=== PATIENT | female | born 1960 | race Two or more races ===

== ENCOUNTER 2025-04-07 01:35 | Emergency (ER) | payer SELFPAY ==
[2025-04-07 01:54] VITALS: BP 145/87; PULSE 84; PULSE 90; RESP 19; RESP 20; TEMP 36.9; O2SAT 100; O2SAT 98; BMI 25.7
--- NOTE | 2025-04-07 02:08 | XR_ITS ---
EXAMINATION: Cervical spine 3 views TECHNIQUE: AP lateral coned AP odontoid cervical spine 3 views Date and time: April 07, 2025, 0325 hours INDICATIONS: Neck pain today. FINDINGS: Straightening normal cervical lordosis. Advanced degenerative disc disease C5-C6, C6-C7 with posterior osteophyte formation The odontoid is intact No cervical fracture IMPRESSION: Advanced degenerative disc disease C5-C6, C6-C7
[2025-04-07 02:25] LABS: Collection Type, Urine Clean Catch
[2025-04-07 02:27] LABS: Basophils # (Auto) 0.1 Thou/mm3 (0.0-0.2); Basophils % (Auto) 1 % (0-2.5); Eosinophils # (Auto) 0.2 Thou/mm3 (0.0-0.5); Eosinophils % (Auto) 2 % (0-10); Hematocrit 41.9 % (36.0-46.0); Hemoglobin 14.6 g/dL (12.0-16.0); Immature Granulocytes Auto 0.14 Thou/mm3 (0.00-0.00); Lymphocytes # (Auto) 2.1 Thou/mm3 (1.0-4.8); Lymphocytes % (Auto) 29 % (10-50); Mean Corpuscular HGB Conc 34.8 g/dl (31.0-37.0); Mean Corpuscular Hemoglobin 31.8 pg (25.0-35.0); Mean Corpuscular Volume 91 fL (80-100); Monocytes # (Auto) 0.6 Thou/mm3 (0.0-0.8); Monocytes % (Auto) 8 % (0-12); Neutrophils # (Auto) 4.3 Thou/mm3 (1.8-7.7); Neutrophils % (Auto) 58 % (37-80); Nucleated Red Blood Cell # 0.00 Thou/mm3 (0.00-0.00); Nucleated Red Blood Cell % 0 /100 WBC (0); Platelet Count 142 Thou/mm3 (140-440); RDW Standard Deviation 47.1 fL (36.4-46.3); Red Blood Count 4.59 Miln/mm3 (4.00-5.20); White Blood Count 7.5 Thou/mm3 (3.6-11.0)
[2025-04-07] MEDS: SODIUM CHLORIDE 0.9% 1000 ML 1,000 ML 999 ML IV (02:27)
[2025-04-07] MEDS: LIDOCAINE 5% 1 PATCH 2 PATCH TOP (02:27)
[2025-04-07] MEDS: ONDANSETRON INJ 2 MG/ML INJ 2 ML 4 MG IVP (02:28)
[2025-04-07] MEDS: KETOROLAC INJ 30 MG/ML VIAL IVP (02:29)
[2025-04-07 02:35] LABS: Amorphous Crystals,Urine Present (Absent); Bacteria,Urine 1+; Bilirubin,Urine 1+ (Negative); Blood,Urine Negative (Negative); Clarity,Urine Turbid (Clear/Hazy); Color,Urine Drk-Yellow (Lt Yel-Yel); Culture Indicated,Urine Contaminated; Glucose, Urine Negative (Negative); Hyaline Casts,Urine 1 /hpf (0-1); Ketones,Urine Trace (Negative); Leukocyte Esterase,Urine Positive (Negative); Nitrite,Urine Negative (Negative); PH,Urine 5.5 (5.0-7.0); Protein,Urine 1+ (Neg - Trace); RBC,Urine 22 /hpf (0-3); Specific Gravity,Urine 1.035 (1.001-1.035); Squamous Epithelial Cell,Urine 31 /hpf (0-5); Urobilinogen,Urine 8.0 mg/dL (0.0-1.0); WBC,Urine 31 /hpf (0-5)
[2025-04-07 02:43] LABS: Amphetamine/Methamp Scrn,U Positive (Negative); Barbiturate Screen,Urine Negative (Negative); Benzodiazepines Screen,Urine Negative (Negative); Benzoylecgonine Screen, Ur Negative (Negative); Fentanyl Screen,Urine Negative (Negative); Opiate Screen,Urine Negative (Negative); THC Screen,Urine Negative (Negative)
[2025-04-07 02:46] LABS: Anion Gap 13 (7-16); BUN/Creatinine Ratio 9 Ratio (12-20); Blood Urea Nitrogen 9 mg/dL (9-23); Calcium 9.3 mg/dL (8.3-10.6); Carbon Dioxide 23.7 mMol/L (20.0-31.0); Chloride 103 mMol/L (98-107); Creatinine (Component) 1.0 mg/dL (0.6-1.3); Estimated Creatinine Clearance 54.6 mL/min (>60); Glucose 107 mg/dL (74-106); Magnesium 1.9 mg/dL (1.6-2.6); Osmolality,Calculated 278 (275-295); Potassium 3.6 mMol/L (3.4-5.1); Sodium 140 mMol/L (136-145); eGFR > 60 See Note
--- NOTE | 2025-04-07 03:56 | EDNOTE_ITS ---
ED Neck Injury Pain RME/HPI General Chief Complaint: Neck Pain/Injury Stated Complaint: NECK PAIN Time Seen by Provider: 04/07/25 02:05 Arrival date/time: 04/07/25 01:35 RME / HPI RME / HPI Narrative: See [facility] for Dr. Garcia's HPI Documentation. Related Data Previous Rx's ?Medication ?Instructions ?Recorded lidocaine 5 % topical patch 1 patch topical QDAY PRN p ain #30 04/07/25 (Lidoderm) ea Allergies Allergy/AdvReac Type Severity Reaction Status Date / Time No Known Allergies Allergy Verified 04/07/25 02:18 Review of Systems Review of Systems Systems Reviewed: All systems reviewed, normal except as documented Past Medical History Past Medical History CARDIAC: Positive Hypercholesterolemia PSYCHO/SOCIAL: Positive Recreational Drug Use, Depression and Anxiety Social History SMOKING STATUS: Current some day smoker SUBSTANCE USE: methamphetamine ED Exam Narrative Physical exam: See [facility] for Dr. Garcia's Physical Exam Documentation. Course Quality Measures none Orders Category Date Time Status XR cervical spine 2-3V Stat Exams 04/07/25 02:08 Completed BMP [Basic Metabolic Panel] Stat Lab 04/07/25 02:15 Completed CBC Stat Lab 04/07/25 02:15 Completed Drug Screen,Urine Stat Lab 04/07/25 02:16 Completed Magnesium Stat Lab 04/07/25 02:15 Completed UA, C/S IF [Urinalysis, C/S if Indicated] Stat Lab 04/07/25 02:16 Completed ALPRazoLAM [Xanax] Med 04/07/25 02:14 Discontinued 0.75 mg PO X1 ONE Ketorolac Inj [Toradol Inj] Med 04/07/25 02:14 Discontinued 30 mg IVP X1 ONE Lidocaine 5% Patch Med 04/07/25 02:07 Discontinued 2 patch TOP X1 ONE Ondansetron Inj [Zofran Inj] Med 04/07/25 02:07 Discontinued 4 mg IVP X1 ONE Sodium Chloride 0.9% 1000 ml [Ns] 1,000 ml Med 04/07/25 02:07 Discontinued IV 999 mls/hr Vital Signs Vital signs: Vital Signs Temperature 98.5 F 04/07/25 01:54 Pulse Rate 84 04/07/25 01:54 Respiratory Rate 19 04/07/25 01:54 Blood Pressure 145/87 H 04/07/25 01:54 Pulse Oximetry (%) 100 04/07/25 01:54 Oxygen Delivery Method Room Air 04/07/25 01:54 Neck Pain MDM Narrative MDM Narrative:: This section includes all my notes and documentations, including HPI, PE, and ED course. Juan Garcia MD HPI: 64 y/o female with Hx of Methmphetamine use presents with neck pain. Woke up suddenly with severe right-sided neck pain. No other complaints. ROS: All negative except as documented in HPI. Physical Exam: General: Alert and oriented. No acute distress when remaining still. Eyes: Conjunctivae and lids clear. EOMI. PERRL. ENT: No nasal congestion. Pharynx normal. Tympanic membrane normal bilaterally. Neck: Supple. No midline tenderness. Heart: RRR. Lungs: No respiratory distress. Good air movement. No rhonchi, wheezing, rales. Chest: No tenderness. Abdomen: Soft and nontender. Normal bowel sounds. No distension. No rebound or guarding. Back: No CVA tenderness. Legs: No clubbing, cyanosis, edema. Skin: Warm and dry. Neuro: Alert and oriented X 3. Cranial Nerves II-XII grossly intact. No peripheral motor deficits. Musculoskeletal: All major joints and bones are not tender with no limited ROM. I reviewed all diagnostic test results: My interpretation of the cervical spine x-ray is: no fracture. Blood tests and urine tests remarkable for positive UDS for methamphetamine. At this point, diagnoses include: Strain of Neck Muscle Methamphetamine Intoxication Treatment here included: Xanax 0.75 mg IVF 1 L Toradol 30 mg Lidocaine Patch 5% Zofran 4 mg Significant improvement noted. Recommended supportive care. Based on my best medical judgment, made decision no further evaluation or treatment indicated at this time. Patient understands and agrees to the discharge instructions customized and printed, see below. Discharge Instructions from Dr. Garcia printed for you: 1. Your neck pain is due to muscle strain. See attached handout. Will get better in a few days. Apply ice for 20 minutes every 2-3 hours today and tomorrow. Tylenol/ibuprofen as needed. Lidocaine patches as needed. 2. But more importantly, you are intoxicated from methamphetamine. To avoid future serious injuries and illnesses (some fatal), stop methamphetamine and all other drugs. 3. See a private doctor on 04/08/2025 for recheck. Ask to review all test results and official radiology reports, to make sure you receive all necessary follow-ups and monitoring. Ask for help until you are completely better. 4. Seek immediate medical care with worsening or with any concerns. Juan Garcia MD Patient data External records reviewed:: [facility] previous records (No prior ED records available for review) Clinical information provided by:: patient Social determinants that could affect healthcare access:: substance use (Methamphetamine) Patient has the following chronic illnesses:: Hypercholesterolemia, Recreational Drug Use, Depression and Anxiety How is presenting disease/condition affected by chronic disease/condition?: exacerbated by Evaluation data The following diagnostics were reviewed and interpreted by me:: lab results and radiology exam(s) Lab and/or radiology exams considered but not ordered:: None Interpretation Summary: I reviewed all diagnostic test results: My interpretation of the cervical spine x-ray is: no fracture. Blood tests and urine tests remarkable for positive UDS for methamphetamine. Medications / Prescriptions Medications or Prescriptions considered but not ordered:: None Medication administrations:: Medication Administration History Discontinued Medications Alprazolam (Alprazolam 0.25 Mg Tablet) 0.75 mg PO X1 ONE Stop: 04/07/25 02:15 Last Admin: 04/07/25 02:28 Dose: 0.75 mg Documented By: EE Sodium Chloride (Ns) 1,000 mls @ 999 mls/hr IV .Q1H1M ONE Stop: 04/07/25 03:07 Last Infusion: 04/07/25 03:30 Dose: Infused Documented By: Admin: 04/07/25 02:27 Dose: 999 mls/hr Documented By: EE Ketorolac Tromethamine (Ketorolac Inj 30 Mg/Ml Vial) 30 mg IVP X1 ONE Stop: 04/07/25 02:15 Last Admin: 04/07/25 02:29 Dose: 30 mg Documented By: EE Lidocaine (Lidocaine 5% 1 Patch) 2 patch TOP X1 ONE Stop: 04/07/25 02:08 Last Admin: 04/07/25 02:27 Dose: 2 patch Documented By: EE Ondansetron HCl (Ondansetron Inj 2 Mg/Ml Inj 2 Ml) 4 mg IVP X1 ONE; Protocol Stop: 04/07/25 02:08 Last Admin: 04/07/25 02:28 Dose: 4 mg Documented By: KENRICK Xanax 0.75 mg IVF 1 L Toradol 30 mg Lidocaine Patch 5% Zofran 4 mg Consultations Consultation(s) initiated? (list below): No Diagnosis Neck Differential Diagnosis: disc disorder of cervical region, closed subluxation of cervical spine, cervical radiculopathy, torticollis, cervical spondylosis and strain of neck muscle Most likely diagnosis given after review of the tests above:: Strain of Neck Muscle Methamphetamine Intoxication Admission Indicated Admission indicated?: not indicated Explain why admission is indicated or not indicated:: With significant improvement and no condition needing emergent intervention, there was no indication for admission. Admission Request Was there a request for admission?: No Disposition Plan Disposition Plan: Discharge Discharge Attestation Discharge Attestation: The patient and all family members were given an opportunity to ask questions and understood the discharge instructions. Discharge instructions specifically effects, indications for sooner follow up or return to the emergency department, and the expected course of current diagnosis. Patient condition: Stable Discharge Plan Plan Patient Disposition: HOME (Self Care) Prescriptions/Referrals Prescriptions/Med Rec: New lidocaine [Lidoderm] 5 % adhesive patch,medicated 1 patch topical QDAY PRN (Reason: pain) Qty: 30 0RF Rx Instructions: leave on most painful area for up to 12 hrs Problem List Clinical Impression: Strain of neck muscle, Methamphetamine intoxication Patient/Caregiver Discharge Instructions Discharge Activity: activity as tolerated Education Materials: Understanding Methamphetamine ..., ED Neck Sprain or Strain Additional Instructions: Discharge Instructions from Dr. Garcia printed for you: 1. Your neck pain is due to muscle strain. See attached handout. Will get better in a few days. Apply ice for 20 minutes every 2-3 hours today and tomorrow. Tylenol/ibuprofen as needed. Lidocaine patches as needed. 2. But more importantly, you are intoxicated from methamphetamine. To avoid future serious injuries and illnesses (some fatal), stop meth amphetamine and all other drugs. 3. See a private doctor on 04/08/2025 for recheck. Ask to review all test results and official radiology reports, to make sure you receive all necessary follow-ups and monitoring. Ask for help until you are completely better. 4. Seek immediate medical care with worsening or with any concerns. Instrucciones de moi del Dr. Garcia (impresas para usted): 1. [place] dolor de lexis se debe a rylee distensi?n muscular. Consulte el folleto adjunto. Mejorar? en unos d?as. Apl?quese hielo julia 20 minutos cada 2-3 horas hoy y ma?phan. [place] paracetamol/ibuprofeno seg?n sea necesario. Parches de lidoca?na seg?n sea necesario. 2. Lala lo m?s importante es que est? intoxicado/a por metanfetamina. Para evitar futuras lesiones y enfermedades graves (algunas mortales), deje de c onsumir metanfetamina y cualquier otra droga. 3. Consulte a un m?dico particular el 5 de 2024 para rylee revisi?n. Solicite revisar todos los resultados de las pruebas y los informes radiol?gicos oficiales para asegurarse de recibir todos los seguimientos y controles necesarios. Solicite ayuda hasta que se recupere por completo. 4. Busque atenci?n m?dica inmediata si de los santos estado empeora o si tiene alguna inquietud. Print Language: Irish Stand Alone Forms: [facility]le Award Info., Patient Portal Info Letter
[2025-04-07 06:00] VITALS: BP 113/75; PULSE 70; RESP 18; TEMP 36.7; O2SAT 99
[2025-04-07 06:30] VITALS: BP 111/74; PULSE 65; RESP 17; TEMP 36.6; O2SAT 100
== END 2025-04-07 06:30 | disposition home or self-care (01) ==
LOC: SERX 05:24
PROVIDERS: Emergency Provider Emergency Medicine
DX: S16.1XXA Strain of muscle, fascia and tendon at neck level, initial encounter (principal); F15.129 Other stimulant abuse with intoxication, unspecified
CPT/HCPCS: 36415; 72040; 80048; 80307; 81001; 83735; 85025; 96361; 96374; 96375; 99284; J1885; J2405; J3490; J7030; A9270